=== PATIENT | male | born 2005 | race Caucasian/White ===

== ENCOUNTER 2023-11-09 20:00 | Emergency (ER) | payer OTHER ==
[~2023-11-09] VITALS: Ht 162.6 cm; Wt 127.0 kg
[2023-11-09 20:32] VITALS: BP 131/73; PULSE 67; RESP 20; TEMP 97.1; O2SAT 99
[2023-11-09] MEDS ORDERED: LIDOCAINE MPF 1% 10 MG/ML VIAL INJ ONE (22:20)
[2023-11-09] MEDS ORDERED: LIDOCAINE MPF 1% 5 ML ONE (22:59)
[2023-11-09] MEDS ORDERED: VANCOMYCIN 1,000 MG in DEXTROSE 5% 250 ML IV ONE (23:10)
[2023-11-09] MEDS ORDERED: VANCOMYCIN 1,000 MG VIAL ONE (23:28)
[2023-11-10] MEDS ORDERED: KETOROLAC 60 MG/2 ML VIAL IM ONE (00:10)
[2023-11-10] MEDS ORDERED: SULF-59 PO (02:53)
== END 2023-11-10 02:50 | disposition home or self-care (01) ==
LOC: MED 20:00
DX: L02.415 Cutaneous abscess of right lower limb (principal); Z79.899 Other long term (current) drug therapy
CPT/HCPCS: 10060; 36415; 87040; 96365; 99284; J1885; J2001; J3370